=== PATIENT | female | born 1940 | race Caucasian/White ===

== ENCOUNTER 2020-03-16 08:46 | Outpatient (CLI) | payer MEDICARE, BC ==
--- NOTE | 2020-03-16 11:03 | BD ---
BONE DENSITOMETRY: Date: 03/16/2020 HISTORY: Postmenopausal screening. FINDINGS: Lumbar Spine: BMD (g/cm2) L1 1.173 T-Score: 1.7 L2 1.170 T-Score: 1.3 L3 1.089 T-Score: 0.0 L4 0.950 T-Score: -1.0 Total 1.096 T-Score: 0.4 Left Femoral Neck: 0.841 T-Score: -0.1 Total Femur: 0.977 T-Score: 0.3 IMPRESSION: Bone mineral density of the lumbar spine and femoral neck are both within normal range. POS: AGW
== END 2020-03-16 08:47 | disposition home or self-care (01) ==
LOC: BICMAMMO 08:46
PROVIDERS: ATTEND Family Medicine
DX: Z13.820 Encounter for screening for osteoporosis (principal); Z78.0 Asymptomatic menopausal state; M85.88 Other specified disorders of bone density and structure, other site
CPT/HCPCS: 77080

== ENCOUNTER 2023-08-09 09:10 | Outpatient (CLI) | payer BC ==
[2023-08-09 11:28] LABS: #Basophils 0.04 10x3/uL (0.0-0.2); #Eosinphils 0.14 10x3/uL (0.0-0.5); #Monocytes 0.53 10x3/uL (0.0-1.1); #Neutrophils 3.11 10x3/uL (1.5-8.4); %Basophils 0.8 % (0.0-2.0); %Lymphocytes 19.2 % (18.0-47.0); %Monocytes 11.2 % (0.0-10.0); %Neutrophils 65.6 % (40.0-75.0); Hematocrit 40.8 % (34.9-44.5); Hemoglobin 13.7 g/dL (12.0-15.5); Mean Corpuscular HGB CONC 33.6 g/dL (32.0-36.0); Mean Corpuscular Hemoglobin 30.6 pg (27.0-33.0); Mean Corpuscular Volume 91.1 fL (81.6-98.3); Mean Platelet Volume 8.8 fL (7.4-10.4); Platelet Count 272 10x3/uL (150-450); RBC Distribution Width 14.6 % (11.5-14.5); Red Blood Cell (RBC) Count 4.48 10x6/uL (3.90-5.03); White Blood Cell (WBC) Count 4.7 10x3/uL (3.5-10.5)
== END 2023-08-09 09:11 | disposition home or self-care (01) ==
LOC: LABBT 09:10
PROVIDERS: ATTEND Orthopaedic Surgery Hand Surgery
DX: Z01.818 Encounter for other preprocedural examination (principal); M65.332 Trigger finger, left middle finger
CPT/HCPCS: 85025; 93005; 93010

== ENCOUNTER 2023-08-13 05:41 | Day surgery (SDC) | payer BC ==
[2023-08-09 09:53] VITALS: BMI 24.1
[2023-08-13] MEDS ORDERED: Bupivacaine PF 0.5% 30 ML VIAL ONE (06:24)
[2023-08-13] MEDS ORDERED: Bacitracin Zinc Ointment 30 gm TUBE ONE (06:24)
[2023-08-13] MEDS ORDERED: Sodium Chloride 0.9% 100 ML ONE (06:51)
[2023-08-13] MEDS ORDERED: CEFAZOLIN 2 GM VIAL ONE (06:51)
[2023-08-13] MEDS ORDERED: Lidocaine 1% PF 5 ML VIAL ONE (06:51)
[2023-08-13] MEDS ORDERED: Ondansetron PF 4 MG/2 ML Vial ONE (06:51)
[2023-08-13] MEDS ORDERED: Dexamethasone 20 MG/5 ML VIAL ONE (06:51)
[2023-08-13] MEDS ORDERED: fentaNYL 50 mcg/mL 1 mL Vial ONE (06:52)
[2023-08-13] MEDS ORDERED: PROPOFOL 20 ML ONE (06:52)
[2023-08-13] MEDS ORDERED: Glycopyrrolate 0.2 MG/ML 5 ML SYRINGE ONE (07:20)
[2023-08-13] MEDS ORDERED: PHENYLEPHRINE-NS 100 MCG/ML 10 ML SYRINGE ONE (07:20)
[2023-08-13] MEDS ORDERED: Ketorolac Tromethamine 30 MG (1 mL) VIAL ONE (07:54)
== END 2023-08-13 09:32 | disposition home or self-care (01) ==
LOC: SDC 05:41
PROVIDERS: ATTEND Orthopaedic Surgery Hand Surgery
PROC: 0LN80ZZ Release Left Hand Tendon, Open Approach (ICD-10-PCS; principal; 2023-08-13)
DX: M65.332 Trigger finger, left middle finger (principal); M81.0 Age-related osteoporosis without current pathological fracture; I10 Essential (primary) hypertension; E78.5 Hyperlipidemia, unspecified; Z87.891 Personal history of nicotine dependence; Z90.710 Acquired absence of both cervix and uterus; Z96.653 Presence of artificial knee joint, bilateral; Z91.018 Allergy to other foods; Z91.048 Other nonmedicinal substance allergy status; Z79.899 Other long term (current) drug therapy
CPT/HCPCS: A6223; J0665; J1100; J1885; J2405; J2704; J3010; J3490

== ENCOUNTER 2024-01-06 13:57 | Outpatient (CLI) | payer MEDICARE | END 2024-01-06 13:58 | disposition home or self-care (01) | LOC: BICULT 13:57 | PROVIDERS: ATTEND Family Medicine | DX: R22.1 Localized swelling, mass and lump, neck (principal) | CPT/HCPCS: 76536 ==

== ENCOUNTER 2024-01-16 13:25 | Outpatient (CLI) | payer MEDICARE | END 2024-01-16 13:26 | disposition home or self-care (01) | LOC: BICCT 13:25 | PROVIDERS: ATTEND Family Medicine | DX: R22.1 Localized swelling, mass and lump, neck (principal); M62.89 Other specified disorders of muscle; K11.0 Atrophy of salivary gland; J38.01 Paralysis of vocal cords and larynx, unilateral | CPT/HCPCS: 70491 ==